=== PATIENT | male | born 1990 | race Caucasian/White ===

== ENCOUNTER 2018-08-04 15:35 | Inpatient (IN) | payer SELFPAY ==
[2018-08-04] VITALS (63 sets, daily range): BP systolic 109–157; BP diastolic 61–126; PULSE 66–122; RESP 12–25; TEMP 35.9–36.5; O2SAT 96–100
[2018-08-04 16:17] LABS: Anion Gap 15.4 mmol/L (3-11); BUN 15 mg/dL (7-18); CO2 18.6 mmol/L (21.0-32.0); CREATININE 0.86 mg/dL (0.70-1.30); Calcium 8.7 mg/dL (8.5-10.1); Chloride 102 mmol/L (98-107); Glucose 146 mg/dL (70-100); Sodium 136 mmol/L (136-145)
[2018-08-04] MEDS: DEXTROSE 5%-0.45% SALINE 1,000 ML 150 ML IV (16:21)
[2018-08-04] MEDS: Enoxaparin 40 MG/0.4 ML SYR SC (16:33)
--- NOTE | 2018-08-04 17:45 | DI.RAD_ITS ---
SYMPTOM/DIAGNOSIS: DIABETIC KETOACIDOSIS, ? INFECTION PA AND LATERAL CHEST: No priors. Heart size and pulmonary vasculature are within normal limits. The lungs are clear. No effusions or pneumothoraces are identified. Old compression deformities are seen of the thoracolumbar junction. IMPRESSION: No acute pulmonary process.
--- NOTE | 2018-08-04 18:27 | DI.VRAD_ITS ---
EXAM: XR Chest, 2 Views EXAM DATE/TIME: 08/04/2018 5:45 PM CLINICAL HISTORY: 27 years old, male; Condition or disease; Other: Dka; Patient HX: Dnka; Additional info: R/O infection TECHNIQUE: Imaging protocol: XR of the chest, 2 views. COMPARISON: No relevant prior studies available. FINDINGS: Lungs: Unremarkable. No consolidation. Pleural space: Unremarkable. No pleural effusion. No pneumothorax. Heart/Mediastinum: Unremarkable. No cardiomegaly. Bones/joints: Unremarkable. IMPRESSION: No acute findings. Dictated and Authenticated by: Gaudencio Nicolas MD. Ordering:LINNEA West MD
--- NOTE | 2018-08-04 18:45 | W.PM.HP.N ---
Date of service: 08/04/18 Time of Service: 18:45 Assessment and Plan (1) DKA (diabetic ketoacidoses): Current visit: Yes Status: Acute Patient arrived from outside institution on an insulin drip and IVFs, with blood sugars less than 250, with repeat BMP showing improving but continued anion gap. Changed IVF's D5 1/2 NS with plans to continue on insulin drip, with frequent check of basic metabolic panel and electrolytes. DKA likely induced by insulin noncompliance. No evidence of infection. clay house worker and care managers were alerted regarding patient's need for insurance. (2) History of drug abuse: Current visit: Yes Status: Chronic Reportedly in remission. (3) Opiate dependence: Current visit: Yes Status: Chronic Continue Suboxone. (4) DVT prophylaxis: Current visit: Yes Status: Acute Lovenox SC. History of Present Illness Chief Complaint: DKA Narrative: Very pleasant 27-year-old man with a past medical history significant for type 1 diabetes, with prior episodes of DKA, admitted as transfer from [facility] Emergency Department on 08/04 with diagnosis of DKA. Mr. Mock has a past medical history significant for type 1 diabetes. His other history includes prior IVDA and heroin abuse, currently on Suboxone therapy, depression, insomnia, HTN, and history of tickborne illness for which he required hospitalization. 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 He was reported to have 'seizures' while on therapy with Lantus in the past - specific questioning reveals that the patient had been experiencing less alarm symptoms for hypoglycemia, and may have experienced hypoglycemia significant enough to induce seizures. However he reports that because of this reason he was changed in his insulin therapy to Tresiba, and since then has not experienced any significant lows, with excellent glycemic control and a hemoglobin A1c less than 7. However as this medicine was quite expensive he could not afford it, and had been attempting control with lower and lower doses at home until finally running out recently. He presented to outside hospital's emergency department with evidence of DKA. His urinalysis showed no signs of infection, and a CXR obtained here showed no acute findings. Due to lack of bed availability at [facility]'s ICU the patient was accepted in transfer for admission here. Review of Systems Review of Systems All systems reviewed & are unremarkable except as noted in HPI and below PFSH Medical History Insomnia (Chronic) Depression (Chronic) Opiate dependence (Chronic) History of drug abuse (Chronic) Type I diabetes mellitus (Chronic) GERD (gastroesophageal reflux disease) (Chronic) Hypertension (Chronic) Insulin dependent diabetes mellitus (Chronic) Narcotic abuse (Chronic) Social History Smoking/Tobacco Use Status: Current every day Tobacco Type: cigarettes Years smoked: 8 Tobacco: How many years used: 2 Alcohol Intake: never Drug use: Current Sobriety Do you feel safe at home: Yes Do you feel safe in your relationship?: Yes Meds Home Medications Medication Instructions Recorded Confirmed Type citalopram 20 mg PO DAILY 04/22/15 08/04/18 History insulin lispro [Humalog] 8 unit SQ AC 04/22/15 08/04/18 History lisinopril 10 mg PO DAILY 04/22/15 08/04/18 History buprenorphine-naloxone [Suboxone] 1 film SUBLINGUAL Q24H 08/04/18 08/04/18 History insulin degludec [Tresiba 34 unit SUBCUT HS 08/04/18 08/04/18 History FlexTouch U-200] Allergies Allergy/AdvReac Type Severity Reaction Status Date / Time No Known Allergies Allergy Unverified 04/22/15 15:29 Exam Narrative Exam Narrative: General: Patient appears comfortable, AAOX3, NAD Neck: Supple CV: Regular, nontachycardic, S1S2, No rubs, murmurs, or gallops. Pulmonary: Clear to auscultation bilaterally, no crackles, wheezing, or rhonchi Abdomen: + Bowel Sounds, soft, nontender, nondistended Vascular: No lower extremity edema Neurologic: CN II-XII grossly intact. No focal deficits. Psych: Normal mood and affect. Results Labs : 08/04/18 16:02 Laboratory Results - last 24 hr 08/04/18 08/04/18 16:02 16:02 Sodium 136 Potassium 4.0 Chloride 102 Carbon Dioxide 18.6 L Anion Gap 15.4 H BUN 15 Creatinine 0.86 Estimated GFR/1.73 m2 >= 60.00 Glucose 146 H Calcium 8.7 Magnesium 2.0 Last Vital Signs Temp 35.9 C L 08/04/18 13:50 Pulse 96 H 08/04/18 13:50 Resp 17 08/04/18 13:50 BP 132/70 08/04/18 13:50 Pulse Ox 100 08/04/18 13:50
--- NOTE | 2018-08-04 18:52 | HPE_ITS ---
Date of service: 08/04/18 Time of Service: 18:45 Assessment and Plan (1) DKA (diabetic ketoacidoses): Current visit: Yes Status: Acute Patient arrived from outside institution on an insulin drip and IVFs, with blood sugars less than 250, with repeat BMP showing improving but continued anion gap. Changed IVF's D5 1/2 NS with plans to continue on insulin drip, with frequent check of basic metabolic panel and electrolytes. DKA likely induced by insulin noncompliance. No evidence of infection. machine made shoe unit worker and care managers were alerted regarding patient's need for insurance. (2) History of drug abuse: Current visit: Yes Status: Chronic Reportedly in remission. (3) Opiate dependence: Current visit: Yes Status: Chronic Continue Suboxone. (4) DVT prophylaxis: Current visit: Yes Status: Acute Lovenox SC. History of Present Illness Chief Complaint: DKA Narrative: Very pleasant 27-year-old man with a past med ical history significant for type 1 diabetes, with prior episodes of DKA, admitted as transfer from [facility] Emergency Department on 08/04 with diagnosis of DKA. Mr. Mock has a past medical history significant for type 1 diabetes. His other history includes prior IVDA and heroin abuse, currently on Suboxone therapy, depression, insomnia, HTN, and history of tickborne illness for which he required hospitalization. 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 He was reported to have 'seizures' while on therapy with Lantus in the past - specific questioning reveals that the patient had been experiencing less alarm symptoms for hypoglycemia, and may have experienced hypoglycemia significant enough to induce seizures. However he reports that because of this reason he was changed in his insulin therapy to Tresiba, and since then has not experienced any significant lows, with excellent glycemic control and a hemoglobin A1c less than 7. However as this medicine was quite expensive he could not afford it, and had been attempting control with lower and lower doses at home until finally running out recently. He presented to outside hospital's emergency department with evidence of DKA. His urinalysis showed no signs of infection, and a CXR obtained here showed no acute findings. Due to lack of bed availability at [facility]'s ICU the patient was accepted in transfer for admission here. Review of Systems Review of Systems All systems reviewed & are unremarkable except as noted in HPI and below PFSH Medical History Insomnia (Chronic) Depression (Chronic) Opiate dependence (Chronic) History of drug abuse (Chronic) Type I diabetes mellitus (Chronic) GERD (gastroesophageal reflux disease) (Chronic) Hypertension (Chronic) Insulin dependent diabetes mellitus (Chronic) Narcotic abuse (Chronic) Social History Smoking/Tobacco Use Status: Current every day Tobacco Type: cigarettes Years smoked: 8 Tobacco: How many years used: 2 Alcohol Intake: never Drug use: Current Sobriety Do you feel safe at home: Yes Do you feel safe in your relationship?: Yes Meds Home Medications Medication Instructions Recorded Confirmed Type citalopram 20 mg PO DAILY 04/22/15 08/04/18 History insulin lispro [Humalog] 8 unit SQ AC 04/22/15 08/04/18 History lisinopril 10 mg PO DAILY 04/22/15 08/04/18 History buprenorphine-naloxone [Suboxone] 1 film SUBLINGUAL Q24H 08/04/18 08/04/18 History insulin degludec [Tresiba 34 unit SUBCUT HS 08/04/18 08/04/18 History FlexTouch U-200] Allergies Allergy/AdvReac Type Severity Reaction Status Date / Time No Known Allergies Allergy Unverified 04/22/15 15:29 Exam Narrative Exam Narrative: General: Patient appears comfortable, AAOX3, NAD Neck: Supple CV: Regular, nontachycardic, S1S2, No rubs, murmurs, or gallops. Pulmonary: Clear to auscultation bilaterally, no crackles, wheezing, or rhonchi Abdomen: + Bowel Sounds, soft, nontender, nondistended Vascular: No lower extremity edema Neurologic: CN II-XII grossly intact. No focal deficits. Psych: Normal mood and affect. Results Labs : 08/04/18 16:02 Laboratory Results - last 24 hr 08/04/18 08/04/18 16:02 16:02 Sodium 136 Potassium 4.0 Chloride 102 Carbon Dioxide 18.6 L Anion Gap 15.4 H BUN 15 Creatinine 0.86 Estimated GFR/1.73 m2 >= 60.00 Glucose 146 H Calcium 8.7 Magnesium 2.0 Last Vital Signs Temp 35.9 C L 08/04/18 13:50 Pulse 96 H 08/04/18 13:50 Resp 17 08/04/18 13:50 BP 132/70 08/04/18 13:50 Pulse Ox 100 08/04/18 13:50
[2018-08-04 20:36] LABS: Anion Gap 10.4 mmol/L (3-11); BUN 15 mg/dL (7-18); CO2 21.6 mmol/L (21.0-32.0); CREATININE 1.03 mg/dL (0.70-1.30); Calcium 8.5 mg/dL (8.5-10.1); Chloride 101 mmol/L (98-107); Glucose 183 mg/dL (70-100); Potassium 3.7 mmol/L (3.5-5.1); Sodium 133 mmol/L (136-145)
[2018-08-04] MEDS: POTASSIUM CHLORIDE/D5-0.9%NACL 1,000 ML 150 MEQ IV (21:29)
[2018-08-04] MEDS: Dextrose 50%-Water 25 GM/50 ML SYR IVP (22:42)
[2018-08-04] MEDS: Acetaminophen 325 MG TAB PO (23:07)
[2018-08-05] VITALS (66 sets, daily range): BP systolic 102–131; BP diastolic 45–99; PULSE 56–100; RESP 13–23; TEMP 35.9–36.9; O2SAT 95–100
[2018-08-05] MEDS: POTASSIUM CHLORIDE/D5-0.9%NACL 1,000 ML 150 MEQ IV ×4 (02:08→21:54)
[2018-08-05] MEDS: Acetaminophen 325 MG TAB PO ×3 (06:29→17:51)
[2018-08-05] MEDS: Citalopram 20 MG TAB PO (08:06)
--- NOTE | 2018-08-05 08:34 | PDOC.CMIN ---
Care Management Initial Assess REASON FOR HOSPITALIZATION:: DKA PAST MEDICAL HISTORY/PAST SURGICAL HISTORY:: Depression, GERD, drug abuse, hypertenstion, insomnia, insulin dependent DM, Narcotic abuse, opiate dependence, Type 1 DM PREVIOUS FUNCTIONAL STATUS/SOCIAL/FAMILY SUPPORTS:: [place] resides in [place] with his significant other and their child. 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 He has a history of narcotic abuse and poorly managed Type 1 DM, and due to cost has begun not taking his insulin. He reportedly moved from [place] to [place] and is well known to the [facility] Emergency Department per Kanchan BORGES CM. CURRENT FUNCTIONAL STATUS:: Esteban was sitting up in his chair, open in interaction and forthcoming with information. He spoke about his life, work, barriers to medication and efforts with insurance. CM provided active listening and patient education around insurance options. ADVANCE DIRECTIVES:: None on file. Has patient been provided with information about the portal?: No Did the patient sign up for the portal?: No INSURANCE COVERAGE / FINANCIAL ISSUES:: Per reports, appears Esteban may be opting out of insurance due to cost; CM requested Navigator consult from [employer], 08/04/18@1600. CURRENT HOME/COMMUNITY SERVICES/EQUIPMENT:: Suboxone management. PRIMARY CARE PHYSICIAN:: Binh Hendrickson POTENTIAL DISCHARGE NEEDS:: Coordination with Kanchan ([facility]) and Yamini ([facility]) to support Esteban in making informed decisions. Follow up appointment with PCP. PATIENT/FAMILY EDUCATION NEEDS:: Review of discharge instructions, insurance options and limitations, Ask Me Three. ANTICIPATED BARRIERS TO DISCHARGE:: None identified. TRANSPORTATION:: Via private vehicle with friend. PLAN:: Esteban will return home when ready per MD. He will follow up with his PCP and plan of care as prescribed. Esteban reports intentions of signing up under his employer's insurance as other options are limited at this time. CM reviewed avenues for support once Esteban has insurance secured. CM will continue to follow and support discharge planning considerations.
--- NOTE | 2018-08-05 08:49 | INITIAL_ITS ---
Care Management Initial Assess REASON FOR HOSPITALIZATION:: DKA PAST MEDICAL HISTORY/PAST SURGICAL HISTORY:: Depression, GERD, drug abuse, hypertenstion, insomnia, insulin dependent DM, Narcotic abuse, opiate dependence, Type 1 DM PREVIOUS FUNCTIONAL STATUS/SOCIAL/FAMILY SUPPORTS:: [place] resides in [place] with his significant other and their child. 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 He has a history of narcotic abuse and poorly managed Type 1 DM, and due to cost has begun not taking his insulin. He reportedly moved from [place] to [place] and is well known to the [facility] Emergency Department per Kanchan BORGES CM. CURRENT FUNCTIONAL STATUS:: Esteban was sitting up in his chair, open in interaction and forthcoming with information. He spoke about his life, work, barriers to medication and efforts with insurance. CM provided active listening and patient education around insurance options. ADVANCE DIRECTIVES:: None on file. Has patient been provided with information about the portal?: No Did the patient sign up for the portal?: No INSURANCE COVERAGE / FINANCIAL ISSUES:: Per reports, appears Esteban may be opting out of insurance due to cost; CM requested Navigator consult from [employer] 08/04/18@1600. CURRENT HOME/COMMUNITY SERVICES/EQUIPMENT:: Suboxone management. PRIMARY CARE PHYSICIAN:: Binh Hendrickson POTENTIAL DISCHARGE NEEDS:: Coordination with Kanchan ([facility]) and Yamini ([facility]) to support Esteban in making informed decisions. Follow up appointment with PCP. PATIENT/FAMILY EDUCATION NEEDS:: Review of discharge instructions, insurance options and limitations, Ask Me Three. ANTICIPATED BARRIERS TO DISCHARGE:: None identified. TRANSPORTATION:: Via private vehicle with friend. PLAN:: Esteban will return home when ready per MD. He will follow up with his PCP and plan of care as prescribed. Esteban reports intentions of signing up under his employer's insurance as other options are limited at this time. CM reviewed avenues for support once Esteban has insurance secured. CM will continue to follow and support discharge planning considerations.
[2018-08-05 09:22] LABS: Abs Immature Grans 0.02 k/cumm (0.0-0.09); Absolute Basophil Count 0.01 k/cumm (0.0-0.2); Absolute Eosinophil Count 0.03 k/cumm (0.0-0.7); Absolute Lymphocyte Count 1.15 k/cumm (1.2-3.4); Absolute Monocyte Count 0.48 k/cumm (0.11-0.7); Basophils % 0.1; Eosinophils % 0.3; HCT 33.2 % (40.0-50.0); HGB 10.2 g/dL (13.5-17.5); Immature Grans % 0.2; Lymphocytes % 10.8; Mean Corp. HGB Concentration 30.7 g/dL (32.0-36.0); Mean Corpuscular Hemoglobin 22.6 pg (27.0-33.0); Mean Corpuscular Volume 73.6 fL (80-95); Mean Platelet Volume 9.4 fL (8.0-11.0); Monocytes % 4.5; Neutrophils % 84.1; Platelet Count 398 x1000/uL (130-400); RBC 4.51 m/cumm (4.50-6.00); RBC Distribution Width 16.3 % (11.8-14.1); White Blood Cell Count 10.69 k/cumm (4.4-10.8)
[2018-08-05 09:28] LABS: Anion Gap 13.5 mmol/L (3-11); BUN 12 mg/dL (7-18); CO2 20.5 mmol/L (21.0-32.0); CREATININE 0.67 mg/dL (0.70-1.30); Chloride 100 mmol/L (98-107); Glucose 299 mg/dL (70-100); Magnesium 1.8 mg/dL (1.8-2.4); Potassium 3.6 mmol/L (3.5-5.1); Sodium 134 mmol/L (136-145)
[2018-08-05 09:41] LABS: Diff Comment RBC Morph Reviewed
[2018-08-05 09:42] LABS: Hypochromasia 1+; Microcytosis 2+
[2018-08-05 09:58] LABS: Hemoglobin A1C 8.8 % (4.5-6.2)
--- NOTE | 2018-08-05 11:48 | PHARADMIT ---
Admission Pharmacy Clinical Review DKA (from [facility]-no ICU beds avail there) Code Status Full Code Current Weight 93.3 kg Renally Cleared and Narrow Therapeutic Index Meds CrCl~149ml/min QTc Value / Action Taken n/a BP Control, Fever BP 113/55 Afebrile Electrolytes reviewed Na+ 134, K+ 3.6, Mag 1.8 IVF's: D5NS w/20meq KCL @ 150ml/hr DVT Prophylaxis Lovenox 40mg Opiate Usage / Scheduled Bowel Regimen Ordered none Plt/SCr for Heparin / Enoxaparin Plt 398 SCr 0.67 INR for Warfarin H/H stable, WBC/Bands H/H 10.2/33.2 WBC 10.69 Antibiotic appropriateness n/a Cultures and Sensitivities none Surgical ABX d/c within 24 hr DM control / Insulin Dosing BG 299, A1C 8.8 Insulin infusion per [place] Protocol Heart Failure (Check EF%) (ANTHONY's, B-Block, Diuretics) none IV to PO Switch Home Meds Reviewed Home Meds Not Ordered Lisinopril not ordered Comments Suboxone 8/2 SL daily Nicotrol inhaler Insulin infusion will drive Potassium down....monitor Prefers Tresiba for diabetes control, but difficulty affording it, non-compliant, community connections may be able to help
[2018-08-05] MEDS: Buprenorphine/Naloxone 8 mg/2 mg FILM 1 EACH SL (11:50)
--- NOTE | 2018-08-05 12:58 | W.PM.PROGNOT ---
Date of Service Date of service: 08/05/18 Time of Service: 12:58 Assessment and Plan (1) DKA (diabetic ketoacidoses): Current visit: Yes Status: Acute Patient arrived from outside institution on an insulin drip and IVFs, with blood sugars less than 250, with repeat BMP showing vastly improved values but but continued anion gap. Continue current fluids (On D5 NS)and insulin gtt, with plans to continue frequent accuchecks and repeat BMP and electrolytes. DKA likely induced by insulin noncompliance. No evidence of infection. adz worker and care managers were alerted regarding patient's need for insurance. (2) History of drug abuse: Current visit: Yes Status: Chronic Reportedly in remission. (3) Opiate dependence: Current visit: Yes Status: Chronic Continue Suboxone. (4) DVT prophylaxis: Current visit: Yes Status: Acute Lovenox SC. Subjective Interval history since last seen: Very pleasant 27-year-old man with a past medical history significant for type 1 diabetes, with prior episodes of DKA, admitted as transfer from [facility] Emergency Department on 08/04 with diagnosis of DKA. Mr. Mock has a past medical history significant for type 1 DM. His other history includes prior IVDA and heroin abuse, reportedly in remission and currently on Suboxone therapy, depression, insomnia, HTN, and history of tickborne illness for which he required hospitalization. 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 He was reported to have 'seizures' while on therapy with Lantus in the past - specific questioning reveals that the patient had been experiencing less alarm symptoms for hypoglycemia, experienced low blood sugars, and may have experienced hypoglycemia significant enough to induce seizures. However he reports that because of this reason he was changed in his insulin therapy to Tresiba, and since then has not experienced any significant lows, with excellent glycemic control and a hemoglobin A1c less than 7. However as this medicine was quite expensive he could not afford it, and had been attempting control with lower and lower doses at home until finally running out recently. He presented to outside hospital's emergency department with evidence of DKA. His urinalysis showed no signs of infection, and a CXR obtained here showed no acute findings. Due to lack of bed availability at [facility]'s ICU the patient was accepted in transfer for admission here. The patient appears improved this morning. His gap is nearly closed. No overnight events reported. Remains afebrile. Exam Narrative Exam Narrative: General: Patient appears comfortable, AAOX3, NAD Neck: Supple CV: Regular, nontachycardic, S1S2, No rubs, murmurs, or gallops. Pulmonary: Clear to auscultation bilaterally, no crackles, wheezing, or rhonchi Abdomen: + Bowel Sounds, soft, nontender, nondistended Vascular: No lower extremity edema Psych: Normal mood and affect. Objective Objective Clinical Data: Abnormal lab results 08/04/18 08/04/18 08/05/18 Range/Units 16:02 20:12 09:00 Hgb (13.5-17.5) g/dL Hct (40.0-50.0) % MCV (80-95) fL MCH (27.0-33.0) pg MCHC (32.0-36.0) g/dL RDW (11.8-14.1) % Absolute Neutrophils (1.2-6.7) k/cumm Absolute Lymphocytes (1.2-3.4) k/cumm Sodium 133 L 134 L (136-145) mmol/L Carbon Dioxide 18.6 L 20.5 L (21.0-32.0) mmol/L Anion Gap 15.4 H 13.5 H (3-11) mmol/L Creatinine 0.67 L (0.70-1.30) mg/dL Glucose 146 H 183 H 299 H D (70-100) mg/dL Hemoglobin A1c (4.5-6.2) % Calcium 8.0 L (8.5-10.1) mg/dL 08/05/18 08/05/18 Range/Units 09:00 09:00 Hgb 10.2 L (13.5-17.5) g/dL Hct 33.2 L (40.0-50.0) % MCV 73.6 L (80-95) fL MCH 22.6 L (27.0-33.0) pg MCHC 30.7 L (32.0-36.0) g/dL RDW 16.3 H (11.8-14.1) % Absolute Neutrophils 9.00 H (1.2-6.7) k/cumm Absolute Lymphocytes 1.15 L (1.2-3.4) k/cumm Sodium (136-145) mmol/L Carbon Dioxide (21.0-32.0) mmol/L Anion Gap (3-11) mmol/L Creatinine (0.70-1.30) mg/dL Glucose (70-100) mg/dL Hemoglobin A1c 8.8 H (4.5-6.2) % Calcium (8.5-10.1) mg/dL Vital Signs Temperature 36.5 C 08/05/18 12:01 Temperature Source Temporal Artery Scan 08/05/18 12:01 Pulse 77 08/05/18 12:01 Pulse 66 08/05/18 05:30 Respiratory Rate 21 08/05/18 12:01 Respiratory Effort Non-Labored 08/05/18 12:01 Respiratory Depth Normal 08/05/18 12:01 Respiratory Pattern Normal 08/05/18 12:01 Blood Pressure 125/99 H 08/05/18 12:01 Blood Pressure Mean 107 08/05/18 12:01 Blood Pressure Position Supine 08/05/18 12:01 Pulse Oximetry 99 08/05/18 12:01 Oxygen Delivery Method Room Air 08/05/18 12:01 Oxygen Flow Rate 0 08/05/18 12:01 Pain Level 7 08/05/18 12:01 Intake & Output 08/04/18 08/05/18 08/05/18 23:59 11:59 23:59 Intake Total 1512.191 / 4980.840 9682.734 / 2030.734 Output Total 1700 / 1700 700 / 1300 600 / 1300 Balance -187.809 / -304.396 6152.734 / 730.734 -600 / 730.734 Weight 89.4 kg 93.3 kg Intake: IV 812.191 / 251.971 4062.734 / 1790.734 Oral 700 / 700 240 / 240 Output: Urine 1700 / 1700 700 / 1300 600 / 1300 Other: Urine Color Yellow Yellow Yellow Urine Appearance Clear Clear Clear Urine Odor None Normal None Comment mixed with stool in commode Stool Occult Blood Negative Stool Size Large Stool Characteristics Formed Voiding Methods Urinal Urinal Laboratory Results WBC 10.69 k/cumm (4.4-10.8) 08/05/18 09:00 RBC 4.51 m/cumm (4.50-6.00) 08/05/18 09:00 Hgb 10.2 g/dL (13.5-17.5) L 08/05/18 09:00 Hct 33.2 % (40.0-50.0) L 08/05/18 09:00 MCV 73.6 fL (80-95) L 08/05/18 09:00 MCH 22.6 pg (27.0-33.0) L 08/05/18 09:00 MCHC 30.7 g/dL (32.0-36.0) L 08/05/18 09:00 RDW 16.3 % (11.8-14.1) H 08/05/18 09:00 Plt Count 398 x1000/uL (130-400) 08/05/18 09:00 MPV 9.4 fL (8.0-11.0) 08/05/18 09:00 Immature Gran % 0.2 08/05/18 09:00 Neutrophils % 84.1 08/05/18 09:00 Lymphocytes % 10.8 08/05/18 09:00 Monocytes % 4.5 08/05/18 09:00 Eosinophils % 0.3 08/05/18 09:00 Basophils % 0.1 08/05/18 09:00 Absolute Neutrophils 9.00 k/cumm (1.2-6.7) H 08/05/18 09:00 Absolute Lymphocytes 1.15 k/cumm (1.2-3.4) L 08/05/18 09:00 Absolute Monocytes 0.48 k/cumm (0.11-0.7) 08/05/18 09:00 Absolute Eosinophils 0.03 k/cumm (0.0-0.7) 08/05/18 09:00 Absolute Basophils 0.01 k/cumm (0.0-0.2) 08/05/18 09:00 Differential Comment Rbc morph reviewed 08/05/18 09:00 RBC Morphology See below 08/05/18 09:00 Hypochromasia 1+ 08/05/18 09:00 Microcytosis 2+ 08/05/18 09:00 Sodium 134 mmol/L (136-145) L 08/05/18 09:00 Potassium 3.6 mmol/L (3.5-5.1) 08/05/18 09:00 Chloride 100 mmol/L (98-107) 08/05/18 09:00 Carbon Dioxide 20.5 mmol/L (21.0-32.0) L 08/05/18 09:00 Anion Gap 13.5 mmol/L (3-11) H 08/05/18 09:00 BUN 12 mg/dL (7-18) 08/05/18 09:00 Creatinine 0.67 mg/dL (0.70-1.30) L 08/05/18 09:00 Estimated GFR/1.73 m2 >= 60.00 (mL/min/1.73m2) 08/05/18 09:00 Glucose 299 mg/dL (70-100) H D 08/05/18 09:00 Hemoglobin A1c 8.8 % (4.5-6.2) H 08/05/18 09:00 Calcium 8.0 mg/dL (8.5-10.1) L 08/05/18 09:00 Magnesium 1.8 mg/dL (1.8-2.4) 08/05/18 09:00
--- NOTE | 2018-08-05 13:03 | PGE_ITS ---
Date of Service Date of service: 08/05/18 Time of Service: 12:58 Assessment and Plan (1) DKA (diabetic ketoacidoses): Current visit: Yes Status: Acute Patient arrived from outside institution on an insulin drip and IVFs, with blood sugars less than 250, with repeat BMP showing vastly improved values but but continued anion gap. Continue current fluids (On D5 NS)and insulin gtt, wi th plans to continue frequent accuchecks and repeat BMP and electrolytes. DKA likely induced by insulin noncompliance. No evidence of infection. transportation worker and care managers were alerted regarding patient's need for insurance. (2) History of drug abuse: Current visit: Yes Status: Chronic Reportedly in remission. (3) Opiate dependence: Current visit: Yes Status: Chronic Continue Suboxone. (4) DVT prophylaxis: Current visit: Yes Status: Acute Lovenox SC. Subjective Interval history since last seen: Very pleasant 27-year-old man with a past medical history significant for type 1 diabetes, with prior episodes of DKA, admitted as transfer from [facility] Emergency Department on 08/04 with diagnosis of DKA. Mr. Mock has a past medical history significant for type 1 DM. His other history includes prior IVDA and heroin abuse, reportedly in remission and currently on Suboxone therapy, depression, insomnia, HTN, and history of t ickborne illness for which he required hospitalization. 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 He was reported to have 'seizures' while on therapy with Lantus in the past - specific questioning reveals that the patient had been experiencing less alarm symptoms for hypoglycemia, experienced low blood sugars, and may have experienced hypoglycemia significant enough to induce seizures. However he reports that because of this reason he was changed in his insulin therapy to Tresiba, and since then has not experienced any significant lows, with excellent glycemic control and a hemoglobin A1c less than 7. However as this medicine was quite expensive he could not afford it, and had been attempting control with lower and lower doses at home until finally running out recently. He presented to outside hospital's emergency department with evidence of DKA. His urinalysis showed no signs of infection, and a CXR obtained here showed no acute findings. Due to lack of bed availability at [facility]'s ICU the patient was accepted in transfer for admission here. The patient appears improved this morning. His gap is nearly closed. No overnight events reported. Remains afebrile. Exam Narrative Exam Narrative: General: Patient appears comfortable, AAOX3, NAD Neck: Supple CV: Regular, nontachycardic, S1S2, No rubs, murmurs, or gallops. Pulmonary: Clear to auscultation bilaterally, no crackles, wheezing, or rhonchi Abdomen: + Bowel Sounds, soft, nontender, nondistended Vascular: No lower extremity edema Psych: Normal mood and affect. Objective Objective Clinical Data: Abnormal lab results 08/04/18 08/04/18 08/05/18 Range/Units 16:02 20:12 09:00 Hgb (13.5-17.5) g/dL Hct (40.0-50.0) % MCV (80-95) fL MCH (27.0-33.0) pg MCHC (32.0-36.0) g/dL RDW (11.8-14.1) % Absolute Neutrophils (1.2-6.7) k/cumm Absolute Lymphocytes (1.2-3.4) k/cumm Sodium 133 L 134 L (136-145) mmol/L Carbon Dioxide 18.6 L 20.5 L (21.0-32.0) mmol/L Anion Gap 15.4 H 13.5 H (3-11) mmol/L Creatinine 0.67 L (0.70-1.30) mg/dL Glucose 146 H 183 H 299 H D (70-100) mg/dL Hemoglobin A1c (4.5-6.2) % Calcium 8.0 L (8.5-10.1) mg/dL 08/05/18 08/05/18 Range/Units 09:00 09:00 Hgb 10.2 L (13.5-17.5) g/dL Hct 33.2 L (40.0-50.0) % MCV 73.6 L (80-95) fL MCH 22.6 L (27.0-33.0) pg MCHC 30.7 L (32.0-36.0) g/dL RDW 16.3 H (11.8-14.1) % Absolute Neutrophils 9.00 H (1.2-6.7) k/cumm Absolute Lymphocytes 1.15 L (1.2-3.4) k/cumm Sodium (136-145) mmol/L Carbon Dioxide (21.0-32.0) mmol/L Anion Gap (3-11) mmol/L Creatinine (0.70-1.30) mg/dL Glucose (70-100) mg/dL Hemoglobin A1c 8.8 H (4.5-6.2) % Calcium (8.5-10.1) mg/dL Vital Signs Temperature 36.5 C 08/05/18 12:01 Temperature Source Temporal Artery Scan 08/05/18 12:01 Pulse 77 08/05/18 12:01 Pulse 66 08/05/18 05:30 Respiratory Rate 21 08/05/18 12:01 Respiratory Effort Non-Labored 08/05/18 12:01 Respiratory Depth Normal 08/05/18 12:01 Respiratory Pattern Normal 08/05/18 12:01 Blood Pressure 125/99 H 08/05/18 12:01 Blood Pressure Mean 107 08/05/18 12:01 Blood Pressure Position Supine 08/05/18 12:01 Pulse Oximetry 99 08/05/18 12:01 Oxygen Delivery Method Room Air 08/05/18 12:01 Oxygen Flow Rate 0 08/05/18 12:01 Pain Level 7 08/05/18 12:01 Intake & Output 08/04/18 08/05/18 08/05/18 23:59 11:59 23:59 Intake Total 1512.191 / 5068.362 0190.734 / 2030.734 Output Total 1700 / 1700 700 / 1300 600 / 1300 Balance -187.809 / -310.624 5036.734 / 730.734 -600 / 730.734 Weight 89.4 kg 93.3 kg Intake: IV 812.191 / 302.592 3085.734 / 1790.734 Oral 700 / 700 240 / 240 Output: Urine 1700 / 1700 700 / 1300 600 / 1300 Other: Urine Color Yellow Yellow Yellow Urine Appearance Clear Clear Clear Urine Odor None Normal None Comment mixed with stool in commode Stool Occult Blood Negative Stool Size Large Stool Characteristics Formed Voiding Methods Urinal Urinal Laboratory Results WBC 10.69 k/cumm (4.4-10.8) 08/05/18 09:00 RBC 4.51 m/cumm (4.50-6.00) 08/05/18 09:00 Hgb 10.2 g/dL (13.5-17.5) L 08/05/18 09:00 Hct 33.2 % (40.0-50.0) L 08/05/18 09:00 MCV 73.6 fL (80-95) L 08/05/18 09:00 MCH 22.6 pg (27.0-33.0) L 08/05/18 09:00 MCHC 30.7 g/dL (32.0-36.0) L 08/05/18 09:00 RDW 16.3 % (11.8-14.1) H 08/05/18 09:00 Plt Count 398 x1000/uL (130-400) 08/05/18 09:00 MPV 9.4 fL (8.0-11.0) 08/05/18 09:00 Immature Gran % 0.2 08/05/18 09:00 Neutrophils % 84.1 08/05/18 09:00 Lymphocytes % 10.8 08/05/18 09:00 Monocytes % 4.5 08/05/18 09:00 Eosinophils % 0.3 08/05/18 09:00 Basophils % 0.1 08/05/18 09:00 Absolute Neutrophils 9.00 k/cumm (1.2-6.7) H 08/05/18 09:00 Absolute Lymphocytes 1.15 k/cumm (1.2-3.4) L 08/05/18 09:00 Absolute Monocytes 0.48 k/cumm (0.11-0.7) 08/05/18 09:00 Absolute Eosinophils 0.03 k/cumm (0.0-0.7) 08/05/18 09:00 Absolute Basophils 0.01 k/cumm (0.0-0.2) 08/05/18 09:00 Differential Comment Rbc morph reviewed 08/05/18 09:00 RBC Morphology See below 08/05/18 09:00 Hypochromasia 1+ 08/05/18 09:00 Microcytosis 2+ 08/05/18 09:00 Sodium 134 mmol/L (136-145) L 08/05/18 09:00 Potassium 3.6 mmol/L (3.5-5.1) 08/05/18 09:00 Chloride 100 mmol/L (98-107) 08/05/18 09:00 Carbon Dioxide 20.5 mmol/L (21.0-32.0) L 08/05/18 09:00 Anion Gap 13.5 mmol/L (3-11) H 08/05/18 09:00 BUN 12 mg/dL (7-18) 08/05/18 09:00 Creatinine 0.67 mg/dL (0.70-1.30) L 08/05/18 09:00 Estimated GFR/1.73 m2 >= 60.00 (mL/min/1.73m2) 08/05/18 09:00 Glucose 299 mg/dL (70-100) H D 08/05/18 09:00 Hemoglobin A1c 8.8 % (4.5-6.2) H 08/05/18 09:00 Calcium 8.0 mg/dL (8.5-10.1) L 08/05/18 09:00 Magnesium 1.8 mg/dL (1.8-2.4) 08/05/18 09:00
[2018-08-05 13:32] LABS: Anion Gap 9.5 mmol/L (3-11); BUN 10 mg/dL (7-18); CO2 22.5 mmol/L (21.0-32.0); CREATININE 0.68 mg/dL (0.70-1.30); Calcium 8.4 mg/dL (8.5-10.1); Chloride 104 mmol/L (98-107); Glucose 159 mg/dL (70-100); Potassium 3.8 mmol/L (3.5-5.1); Sodium 136 mmol/L (136-145)
[2018-08-05] MEDS: Enoxaparin 40 MG/0.4 ML SYR SC (15:49)
--- NOTE | 2018-08-05 16:52 | NUR.NOTE ---
Dr. Vasques in unit and discussed care with this RN. Plan to give Lantus 20 units with dinner, shut off insulin drip 2 hours post-Lantus and do FS every 2-3 hours overnight. Restart insulin drip if FS becomes > 300. Next BMP will be with AM labs. Dr. Vasques placing an order for patient to have heat pack for his chronic back pain and for the above plan. Nursing Note:
[2018-08-05] MEDS: Insulin Glargine 300 UNITS/3 ML PEN 20 UNITS SC (17:17)
[2018-08-05] MEDS: Ibuprofen 600 MG TAB PO (17:51)
[2018-08-06] VITALS (30 sets, daily range): BP systolic 105–122; BP diastolic 49–71; PULSE 56–94; RESP 15–27; TEMP 36.3–36.9; O2SAT 96–97
[2018-08-06] MEDS: POTASSIUM CHLORIDE/0.9% NACL 1,000 ML 150 MEQ IV ×2 (02:04→03:53)
[2018-08-06] MEDS: Ibuprofen 600 MG TAB PO (03:52)
[2018-08-06] MEDS: Acetaminophen 325 MG TAB PO (05:49)
[2018-08-06 06:59] LABS: Abs Immature Grans 0.02 k/cumm (0.0-0.09); Absolute Basophil Count 0.03 k/cumm (0.0-0.2); Absolute Eosinophil Count 0.05 k/cumm (0.0-0.7); Absolute Lymphocyte Count 1.49 k/cumm (1.2-3.4); Absolute Monocyte Count 0.76 k/cumm (0.11-0.7); Basophils % 0.4; Eosinophils % 0.7; HGB 10.1 g/dL (13.5-17.5); Immature Grans % 0.3; Lymphocytes % 20.5; Mean Corp. HGB Concentration 30.6 g/dL (32.0-36.0); Mean Corpuscular Hemoglobin 22.4 pg (27.0-33.0); Mean Corpuscular Volume 73.2 fL (80-95); Mean Platelet Volume 9.4 fL (8.0-11.0); Monocytes % 10.5; Neutrophils % 67.6; Platelet Count 392 x1000/uL (130-400); RBC 4.51 m/cumm (4.50-6.00); RBC Distribution Width 16.7 % (11.8-14.1); White Blood Cell Count 7.27 k/cumm (4.4-10.8)
[2018-08-06 07:19] LABS: Absolute Neutrophil Count 4.91 k/cumm (1.2-6.7)
[2018-08-06 07:23] LABS: Anion Gap 10.1 mmol/L (3-11); BUN 5 mg/dL (7-18); CO2 24.9 mmol/L (21.0-32.0); CREATININE 0.64 mg/dL (0.70-1.30); Calcium 8.3 mg/dL (8.5-10.1); Chloride 100 mmol/L (98-107); Glucose 249 mg/dL (70-100); Magnesium 1.6 mg/dL (1.8-2.4); Potassium 3.8 mmol/L (3.5-5.1); Sodium 135 mmol/L (136-145)
[2018-08-06 07:48] LABS: Diff Comment RBC Morph Reviewed; Hypochromasia 3+; Microcytosis 3+
--- NOTE | 2018-08-06 08:35 | PDOC.CMDIS ---
LACE Index Scoring Tool - Questions: Length of Stay (in days): 3 Acuity (Admit via E.D.?): Yes Comorbidities: Diabetes w/o Complication E.D. Visits: 1 - Answers: Total Score: 8 Risk of Readmission: Low Risk Care Management Discharge Reason for Hospitalization: DKA Discharge Plan: Esteban will return home when ready per MD. He will follow up with his PCP and plan of care as prescribed. Esteban reports intentions of signing up under his employer's insurance as other options are limited at this time. CM reviewed avenues for support once Esteban has insurance secured. CM will continue to follow and support discharge planning considerations. Patient/Family Education Needs: Review discharge instructions, discuss Ask Me Three.
[2018-08-06] MEDS: MAGNESIUM SULFATE 1 GM/100 ML BAG IVPB (08:41)
[2018-08-06] MEDS: Potassium Chloride 20 MEQ TABCR PO (08:41)
[2018-08-06] MEDS: Citalopram 20 MG TAB PO (08:41)
[2018-08-06] MEDS: Insulin Aspart 300 UNITS/3 ML PEN SC ×2 (10:02→11:58)
[2018-08-06] MEDS: Buprenorphine/Naloxone 8 mg/2 mg FILM 1 EACH SL (11:58)
[2018-08-06 12:26] LABS: Anion Gap 6.5 mmol/L (3-11); BUN 6 mg/dL (7-18); CO2 29.5 mmol/L (21.0-32.0); CREATININE 0.67 mg/dL (0.70-1.30); Calcium 8.5 mg/dL (8.5-10.1); Chloride 101 mmol/L (98-107); Glucose 211 mg/dL (70-100); Potassium 3.9 mmol/L (3.5-5.1); Sodium 137 mmol/L (136-145)
--- NOTE | 2018-08-06 12:53 | DSE_ITS ---
Date of service: 08/06/18 Time of Service: 12:51 DS: Diagnosis Discharge Diagnosis (1) DKA (diabetic ketoacidoses): Status: Resolved (2) History of drug abuse: Status: Chronic (3) Opiate dependence: Status: Chronic (4) Type I diabetes mellitus: Status: Chronic Discharge Plan Disposition Patient Disposition: HOME Condition: Improving Discharge Details Reason For Visit: DKA Admit Date/Time: 08/04/18 15:35 Admit Provider: Brett Vasques Attending Provider: Brett Vasques Primary Care Provider: Binh Hendrickson Hospital Course Hospital Course: Chief Complaint: DKA HPI: Very pleasant 27-year-old man with a past medical history significant for type 1 diabetes, with prior episodes of DKA, admitted as transfer from [facility] Emergency Department on 08/04 with diagnosis of DKA. Mr. Mock has a past medical history significant for Type 1 DM. His other history includes prior IVDA and heroin abuse, reportedly in remission and currently on Suboxone therapy, depression, insomnia, HTN, and history of tickborne illness for which he required hospitalization. 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 He was reported to have 'seizures' while on therapy with Lantus in the past - specific questioning reveals that the patient had been experiencing less alarm symptoms for hypoglycemia, experienced low blood sugars, and may have experienced hypoglycemia significant enough to induce seizures. However he reports that because of this reason he was changed in his insulin therapy to Tresiba, and since then has not experienced any significant lows, with excellent glycemic control and a hemoglobin A1c less than 7. However as this medicine was quite expensive he could not afford it, and had been attempting control with lower and lower doses at home until finally running out recently. He presented to outside hospital's emergency department with evidence of DKA. His urinalysis showed no signs of infection, and a CXR obtained here showed no acute findings. Due to lack of bed availability at [facility]'s ICU the patient was accepted in transfer for admission here. The patient appears improved this morning. His gap anion closed yesterday, and remains so this morning and again at time of discharge. No overnight events reported. Remains afebrile. Hospital Course: (1) DKA (diabetic ketoacidoses): Patient arrived from outside institution on an insulin drip and IVFs, with blood sugars less than 250, with repeat BMP showing vastly improved values but but continued anion gap. He was maintained on fluids (On D5 NS) and insulin gtt, electrolytes repleted, and with frequent lab checks until his anion gap was closed. He received a low dose of Lantus, fed, and fluids and insulin gtt were turned off last evening, with gap remaining closed on subsequent labwork. DKA likely induced by insulin noncompliance. No evidence of infection. house worker and care managers were alerted regarding patient's need for insurance. He has been in contact with the Care Managers at [facility], and for now will obtain his insulin from [facility] at a reasonable arias. He will be discharged with Lantus, although at a lower dose to avoid hypoglycemia, and follow-up with his PCP soon. His HgA1C checked here was above goal at 8.8%. He is also leaving with the remainder of his insulin pen supplied during his treatment course. (2) History of drug abuse: Reportedly in remission. (3) Opiate dependence: Continue Suboxone. (4) DVT prophylaxis: Patient was maintained on Lovenox SC. Home Meds and New Rx's Prescriptions: New Lantus Solostar U-100 Insulin 100 unit/mL (3 mL) Insulin Pen 25 unit subcut HS Qty: 3 RF: 0 Continued citalopram 20 MG tablet 20 mg PO DAILY RF: 0 lisinopril 2.5 MG tablet 10 mg PO DAILY RF: 0 Humalog U-100 Insulin 100 UNIT/ML cartridge 8 unit SQ AC RF: 0 buprenorphine-naloxone [Suboxone] 8-2 mg Film 1 film SUBLINGUAL Q24H RF: 0 Discontinued Tresiba FlexTouch U-200 200 unit/mL (3 mL) Insulin Pen 34 unit subcut HS RF: 0 Discharge Instructions Activity:: No Strenuous Activity Equipment/Supplies:: No Equipment Needed Diet:: Carb Counting Discharge Orders Discharge Orders: Discharge Order (Routine); Ordered 08/06/18 Ordered By: Brett Vasques Exam Narrative Exam Narrative: General: Patient appears comfortable, AAOX3, NAD Neck: Supple CV: Regular, nontachycardic, S1S2, No rubs, murmurs, or gallops. Pulmonary: Clear to auscultation bilaterally, no crackles, wheezing, or rhonchi Abdomen: + Bowel Sounds, soft, nontender, nondistended Vascular: No lower extremity edema Psych: Normal mood and affect. DS: Data Vitals/I&O Vitals and I&O: Vital Signs Temperature 36.9 C 08/06/18 08:00 Temperature Source Temporal Artery Scan 08/06/18 08:00 Pulse 67 08/06/18 09:17 Pulse 69 08/06/18 10:00 Respiratory Rate 17 08/06/18 10:00 Respiratory Effort 08/06/18 08:00 Respiratory Depth Normal 08/06/18 08:00 Respiratory Pattern Normal 08/06/18 08:00 Blood Pressure 122/71 08/06/18 09:17 Blood Pressure Mean 82 08/06/18 09:17 Blood Pressure Position Supine 08/05/18 12:01 Pulse Oximetry 96 08/06/18 05:53 Oxygen Delivery Method Room Air 08/06/18 05:53 Oxygen Flow Rate 0 08/06/18 05:53 Pain Level 2 08/06/18 08:00 Intake & Output 08/05/18 08/06/18 08/06/18 23:59 11:59 23:59 Intake Total 3520.300 / 5551.034 2196.7 / 2196.7 Output Total 2350 / 3050 2500 / 2500 Balance 1170.300 / 2501.034 -303.3 / -303.3 Weight 95.1 kg Intake: IV 2848.300 / 4639.034 2016.7 / 2016.7 Oral 672 / 912 180 / 180 Output: Urine 2350 / 3050 2500 / 2500 Other: Urine Color Yellow Yellow Urine Appearance Clear Clear Urine Odor None None Voiding Methods Urinal Urinal Completed studies during hospitalization [Text1]: Exam(s) a RAD:XR chest 2V PA & lateral SYMPTOM/DIAGNOSIS: DIABETIC KETOACIDOSIS, ? INFECTION PA AND LATERAL CHEST: No priors. Heart size and pulmonary vasculature are within normal limits. The lungs are clear. No effusions or pneumothoraces are identified. Old compression deformities are seen of the thoracolumbar junction. IMPRESSION: No acute pulmonary process. Labs on day of discharge: Labs from last 24 hours 08/06/18 08/06/18 08/06/18 12:05 06:30 06:30 WBC 7.27 D RBC 4.51 Hgb 10.1 L Hct 33.0 L MCV 73.2 L MCH 22.4 L MCHC 30.6 L RDW 16.7 H Plt Count 392 MPV 9.4 Immature Gran % 0.3 Neutrophils % 67.6 Lymphocytes % 20.5 Monocytes % 10.5 Eosinophils % 0.7 Basophils % 0.4 Absolute Neutrophils 4.91 Absolute Lymphocytes 1.49 Absolute Monocytes 0.76 H Absolute Eosinophils 0.05 Absolute Basophils 0.03 Differential Comment Rbc morph reviewed RBC Morphology See below Hypochromasia 3+ Microcytosis 3+ Sodium 137 135 L Potassium 3.9 3.8 Chloride 101 100 Carbon Dioxide 29.5 24.9 Anion Gap 6.5 10.1 BUN 6 L 5 L Creatinine 0.67 L 0.64 L Estimated GFR/1.73 m2 >= 60.00 >= 60.00 Glucose 211 H 249 H D Calcium 8.5 8.3 L Magnesium 1.6 L Path Cons Comment Pending 08/05/18 13:08 WBC RBC Hgb Hct MCV MCH MCHC RDW Plt Count MPV Immature Gran % Neutrophils % Lymphocytes % Monocytes % Eosinophils % Basophils % Absolute Neutrophils Absolute Lymphocytes Absolute Monocytes Absolute Eosinophils Absolute Basophils Differential Comment RBC Morphology Hypochromasia Microcytosis Sodium 136 Potassium 3.8 Chloride 104 Carbon Dioxide 22.5 Anion Gap 9.5 BUN 10 Creatinine 0.68 L Estimated GFR/1.73 m2 >= 60.00 Glucose 159 H D Calcium 8.4 L Magnesium Path Cons Comment [facility] Medical History Insomnia (Chronic) Depression (Chronic) Opiate dependence (Chronic) History of drug abuse (Chronic) Type I diabetes mellitus (Chronic) GERD (gastroesophageal reflux disease) (Chronic) Hypertension (Chronic) Insulin dependent diabetes mellitus (Chronic) Narcotic abuse (Chronic) Social History Smoking/Tobacco Use Status: Current every day Tobacco Type: cigarettes Tobacco: How many years used: 2 Alcohol Intake: never Drug use: Current Sobriety Do you feel safe at home: Yes Do you feel safe in your relationship?: Yes
== END 2018-08-06 13:45 | disposition home or self-care (01) | DRG 638 ==
PROVIDERS: Admitting Provider Internal Medicine; PCP Neuromusculoskeletal Medicine & OMM; Visit Provider Family Medicine
DX: E10.10 Type 1 diabetes mellitus with ketoacidosis without coma (principal); E87.2 Acidosis; F11.21 Opioid dependence, in remission; T38.3X6A Underdosing of insulin and oral hypoglycemic [antidiabetic] drugs, initial encounter; Z91.120 Patient's intentional underdosing of medication regimen due to financial hardship; I10 Essential (primary) hypertension
CPT/HCPCS: 36415; 80048; 99222; 99232; 99239; J1650; 71046; 83036; 83735; 85025; J3475

== ENCOUNTER 2019-01-23 21:33 | Outpatient (REF) | payer MEDICAID, SELFPAY | END 2019-01-23 21:53 | LOC: LBN 21:33 | PROVIDERS: PCP Neuromusculoskeletal Medicine & OMM; Visit Provider Internal Medicine Infectious Disease | DX: M46.26 Osteomyelitis of vertebra, lumbar region (principal); B37.9 Candidiasis, unspecified; Z45.2 Encounter for adjustment and management of vascular access device; K68.12 Psoas muscle abscess | CPT/HCPCS: 84520; 85652; 82565; 84450; 84460; 85025; 86140 ==